=== PATIENT | female | born 1955 | race Caucasian/White ===

== ENCOUNTER → 2017-08-16 | Day surgery (SDC) | payer OTHER ==
[~2017-08-16] VITALS: Ht 170.2 cm; Wt 72.0 kg
[~2017-08-16] MED LIST: 0.9% Sodium Chloride 1,000 ML IV PRN; CALC600T12 PO; CHOL200025 PO; LEVO100T6 PO; SERT100T PO; Sodium Chloride LOK Flush 10 mL Syringe IV PRN; fentaNYL-PF 50 mCg/mL 2 mL Inj IVPUSH PRN
[2017-08-16 10:34] VITALS: BP 111/71; PULSE 59; RESP 16; O2SAT 97
[2017-08-16 11:42] VITALS: BP 87/66; PULSE 59; RESP 16; O2SAT 99
[2017-08-16 11:54] VITALS: BP 98/63; PULSE 59; RESP 16; O2SAT 98
[2017-08-16 12:02] VITALS: BP 111/69; PULSE 58; RESP 16; O2SAT 99
--- NOTE | 2017-08-16 21:27 | ENDO ---
[address] [id number] ENDOSCOPY PROCEDURE PATIENT: LOBITO ACOSTA : 1955 MR#: [id number] ADMIT: 08/16/2017 JOB ID: [id number] PRIMARY PROVIDER: Jean-Claude Jamil MD PROCEDURE: Colonoscopy. INDICATIONS: A 62-year-old female who reports for colon cancer screening. EQUIPMENT: PCF H 180 AL. SEDATION: 1. 6 mg Versed. 2. 125 mcg fentanyl. COMPLICATIONS: None identified. BOWEL PREPARATION: Fair, adequate exam. PROCEDURE INFORMATION: After the risks and benefits were explained, written and verbal informed consent was obtained. The patient was brought into the endoscopy suite and placed in the left lateral decubitus position. Sedation was achieved using the above-stated medications with the addition of oxygen via nasal cannula. Digital rectal examination was accomplished. No significant pathology appreciated. The scope was introduced into the rectum and advanced to the cecum as identified by the appendiceal orifice and ileocecal valve. The scope was slowly withdrawn to carefully examine the mucosa for any defects or lesions. Multiple direct views were made through the dentate line for exclusion of pathology. The colon was decompressed. The scope removed from the patient who tolerated the procedure well. FINDINGS: No significant polyps, mass lesions, or inflammatory features identified throughout. At one point during the case we thought we saw a very diminutive polyp in the left colon and with forceps deployed. This was no longer identified. I suspect this was a hyperplastic focus as before. The patient had moderate internal and external, nonbleeding, nonthrombosed hemorrhoids. ENDOSCOPIC DIAGNOSES: 1. Hemorrhoids. 2. Visually unremarkable colonoscopy to cecum. RECOMMENDATIONS: Repeat colonoscopy 10 years' time, sooner should symptoms warrant an earlier exam.
== END | disposition home or self-care (01) ==
LOC: END 00:21
PROVIDERS: ATTEND Internal Medicine Gastroenterology
DX: Z12.11 Encounter for screening for malignant neoplasm of colon (principal); K63.5 Polyp of colon; K64.8 Other hemorrhoids; E07.9 Disorder of thyroid, unspecified; F41.9 Anxiety disorder, unspecified; F32.9 Major depressive disorder, single episode, unspecified; Z86.010 Personal history of colon polyps; Z79.899 Other long term (current) drug therapy; Z87.891 Personal history of nicotine dependence
CPT/HCPCS: 45378; 99153; G0500; J2250; J3010; J7030